=== PATIENT | male | born 1965 | race African-American/Black ===

== ENCOUNTER → 2017-09-23 | Outpatient (CLI) | payer OTHER ==
[2017-09-23 10:51] LABS: THYROID STIM HORMONE (TSH) 0.908 uIU/mL (0.358-3.74)
[2017-09-23 19:18] LABS: LUTEINIZING HORMONE 5.1 mIU/mL (1.7-8.6); TESTOSTERONE TOTAL 1224 ng/dL (264-916)
[2017-09-24 17:15] LABS: HBSAG CONFIRMATION Positive (.); HCV ANTIBODY >11.0 s/co ratio (0.0-0.9); HEP A IGM ABDY Negative (Negative); HEP B SURFACE AG Confirm. indicated (Negative)
[2017-09-25 23:13] LABS: HSV 1&2 IGM <0.91 Ratio (0.00-0.90)
== END | disposition home or self-care (01) ==
LOC: US 08:58
DX: L03.115 Cellulitis of right lower limb (principal); B19.9 Unspecified viral hepatitis without hepatic coma; N28.1 Cyst of kidney, acquired; M79.89 Other specified soft tissue disorders; I10 Essential (primary) hypertension; R60.0 Localized edema; R56.9 Unspecified convulsions
CPT/HCPCS: 36415; 73718; 76700; 80074; 83002; 84403; 84443; 87529